=== PATIENT | female | born 1955 | race Caucasian/White ===

== ENCOUNTER 2020-06-08 03:34 | Emergency (ER) | payer OTHER ==
[~2020-06-08] VITALS: Ht 157.5 cm; Wt 64.0 kg
[~2020-06-08 03:34] MED LIST: ALBU05; FLUT1DIS; MOME13HF2; SERT25TA; VIC; proair inhaler
[2020-06-08] MEDS ORDERED: TETANUS, DIPHTHERIA, PERTUSSIS VAC/PF 0.5ML (>7YR OLD) IM ONE (05:00)
[2020-06-08] MEDS ORDERED: BACITRACIN ZINC OINT UDPKT TOP ONE (05:00)
[2020-06-08 05:31] VITALS: BP 122/62
== END 2020-06-08 05:32 | disposition home or self-care (01) ==
LOC: ER 03:34
DX: S61.451A Open bite of right hand, initial encounter (principal); M79.641 Pain in right hand; W54.0XXA Bitten by dog, initial encounter; Y93.89 Activity, other specified; Y92.9 Unspecified place or not applicable
CPT/HCPCS: 73130; 90471; 90715; 99283; A4315

== ENCOUNTER 2020-10-04 04:19 | Emergency (ER) | payer OTHER ==
[~2020-10-04] VITALS: Ht 157.5 cm; Wt 73.0 kg
[2020-10-04] MEDS ORDERED: IBUP-2029 MT (04:45)
[2020-10-04] MEDS ORDERED: KETOROLAC 60MG/2ML VIAL IM ONE (04:45)
[2020-10-04] MEDS ORDERED: LIDOCAINE 5% PATCH TOP SCH (04:45)
[2020-10-04 05:03] VITALS: BP 125/52
== END 2020-10-04 05:47 | disposition home or self-care (01) ==
LOC: ER 04:19
DX: S16.1XXA Strain of muscle, fascia and tendon at neck level, initial encounter (principal); F41.9 Anxiety disorder, unspecified; J45.909 Unspecified asthma, uncomplicated; I10 Essential (primary) hypertension; X58.XXXA Exposure to other specified factors, initial encounter; Y93.9 Activity, unspecified; Y92.9 Unspecified place or not applicable; Z59.0 Homelessness
CPT/HCPCS: 96372; 99283; J1885

== ENCOUNTER 2020-10-17 06:08 | Emergency (ER) | payer OTHER ==
[~2020-10-17] VITALS: Ht 157.5 cm; Wt 73.0 kg
[~2020-10-17 06:08] MED LIST changes: +IBUP-2029 MT
[2020-10-17] MEDS ORDERED: KETOROLAC 30MG/ML VIAL IM ONE (08:15)
[2020-10-17] MEDS ORDERED: TETRACAINE 0.5% OPHTH DROPS 4ML LEFTEYE ONE (08:30)
[2020-10-17 08:33] VITALS: BP 119/70
[2020-10-17] MEDS ORDERED: LIDOCAINE 5% PATCH TOP SCH (09:00)
== END 2020-10-17 09:07 | disposition left against medical advice (07) ==
LOC: ER 06:08
DX: M54.2 Cervicalgia (principal); H57.12 Ocular pain, left eye; F15.10 Other stimulant abuse, uncomplicated; J45.909 Unspecified asthma, uncomplicated; Z98.890 Other specified postprocedural states; Z90.710 Acquired absence of both cervix and uterus
CPT/HCPCS: 93005; 96372; 99283; J1885; Z7610

== ENCOUNTER 2020-11-03 18:44 | Emergency (ER) | payer OTHER ==
[~2020-11-03] VITALS: Ht 154.9 cm; Wt 59.0 kg
[2020-11-03] MEDS ORDERED: ACETAMINOPHEN 325MG TABLET PO ONE (21:00)
[2020-11-03 22:08] VITALS: BP 121/69
== END 2020-11-03 22:45 | disposition home or self-care (01) ==
LOC: ER 18:44
DX: M54.2 Cervicalgia (principal); M79.602 Pain in left arm; M79.642 Pain in left hand; F15.10 Other stimulant abuse, uncomplicated; J45.909 Unspecified asthma, uncomplicated; Z98.890 Other specified postprocedural states; Z90.710 Acquired absence of both cervix and uterus
CPT/HCPCS: 71045; 73060; 73130; 99284